=== PATIENT | male | born 1970 | race Caucasian/White ===

== ENCOUNTER 2018-01-17 09:09 | Day surgery (SDC) | payer OTHER ==
[2018-01-10 14:27] VITALS: BMI 32.6
[2018-01-17] MEDS ORDERED: PROPOFOL 20 ML ONE ×2 (09:30)
[2018-01-17] MEDS ORDERED: ROPIVACAINE HCL 0.5% 30ML VIAL ONE (09:42)
[2018-01-17] MEDS ORDERED: MIDAZOLAM HCL 2 MG/2 ML SINGLE DOSE VIAL ONE (10:23)
[2018-01-17] MEDS ORDERED: ONDANSETRON 4 MG/2 ML VIAL ONE (11:16)
[2018-01-17] MEDS ORDERED: DEXAMETHASONE SOD PHOSPHATE 4 MG/1 ML VIAL ONE (11:16)
[2018-01-17] MEDS ORDERED: LIDOCAINE HCL/PF 2% SDV 5ML VIAL ONE (11:16)
[2018-01-17] MEDS ORDERED: KETOROLAC TROMETHAMINE 30 MG/1 ML VIAL ONE (12:12)
[2018-01-17] MEDS ORDERED: KETOROLAC TROMETHAMINE 30 MG/1 ML VIAL IVPUSH ONE ×2 (12:15→12:57)
[2018-01-17] MEDS ORDERED: oxyCODONE HCL 5 MG TABLET PO PRN (12:55)
[2018-01-17 13:33] VITALS: TEMP 97.9
[2018-01-17 14:08] VITALS: BP 131/81; PULSE 62
--- NOTE | 2018-01-18 16:40 | OP ---
DATE OF OPERATION: 01/17/2018 PREOPERATIVE DIAGNOSIS: Right wrist triangular fibrocartilage complex tear. POSTOPERATIVE DIAGNOSIS: Right wrist triangular fibrocartilage complex tear. OPERATIVE PROCEDURE: Right wrist operative arthroscopy with debridement of triangular fibrocartilage complex. SURGEON: Bryan Skinner MD FERMENTATION MANAGER: AXEL Enriquez ANESTHESIA: General. COMPLICATIONS: None. ESTIMATED BLOOD LOSS: Minimal. INDICATION FOR PROCEDURE: The patient is a 47-year-old male with the above finding indicated for operative treatment. Risks, benefits, and alternatives were discussed with the patient at length. Proper informed consent was obtained. DESCRIPTION OF PROCEDURE: After proper identification of the patient and correct operative site, patient was brought to the operating room and placed supine on the table. All prominences were well padded. General anesthesia was provided by the anesthesiologist adequate for the procedure. The right upper extremity was prepped and draped in usual sterile fashion. A well-padded tourniquet was placed as well sterile prep. Esmarch bandage to exsanguinate the right upper extremity. Tourniquet was inflated to 250 mmHg. Wrist arthroscopy traction tower was used with 10 pounds of inline traction, and 2.7 mm gravity inflow arthroscope was used throughout the procedure. portals were used with skin incision only and blunt dissection down to the joint capsule. 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 There was no evidence of tear of the lunotriquetral or scapholunate ligaments, and volar ligaments were intact. Dorsal, ulnar erythema was noted, and this was debrided. A full-thickness central tear of the TFCC was noted. This was debrided with mechanical shaver down to a stable base. The distal ulna had some fraying as well of the cartilage but was not particularly prominent. However, with the combination of this finding as well as the triquetral chondromalacia, this could represent ulnar impaction. The wound was irrigated with saline and repaired using 5-0 nylon suture. Sterile dressings were applied. The patient was reversed from anesthesia and brought to Recovery in stable condition. AXEL Enriquez, the assistant professor, was integral throughout the procedure. Procedure could not have been performed without a skilled operative assistant professor. Ce [id number]
== END 2018-01-17 13:40 | disposition home or self-care (01) ==
LOC: FASU 09:09
PROVIDERS: ATTEND Orthopaedic Surgery Hand Surgery
PROC: 0MQ54ZZ Repair Right Wrist Bursa and Ligament, Percutaneous Endoscopic Approach (ICD-10-PCS; principal; 2018-01-17 11:25)
DX: S63.591A Other specified sprain of right wrist, initial encounter (principal); Y93.89 Activity, other specified; Y92.89 Other specified places as the place of occurrence of the external cause
CPT/HCPCS: 94760